=== PATIENT | female | born 1945 | race Caucasian/White ===

== ENCOUNTER 2016-09-16 19:21 | Emergency (ER) | payer OTHER, MEDICARE ==
[2016-09-16 19:26] VITALS: BP 148/81
--- NOTE | 2016-09-16 20:12 | RADIOLOGY REPORT ---
EXAMINATION: XR HIP, RIGHT CLINICAL INFORMATION: Fall, right hip pain. COMPARISON: No relevant prior studies are available for comparison. TECHNIQUE: An AP view of the pelvis as well as AP and frogleg lateral views of the right hip obtained. FINDINGS: No fracture or dislocation. No osseous erosion. Mild degenerative changes within the visualized lower lumbar spine. Small bilateral acetabular marginal osteophytes. No significant joint space narrowing. No abnormal soft tissue calcification. IMPRESSION: 1. No fracture or dislocation. 2. Mild bilateral hip osteoarthritis.
--- NOTE | 2016-09-16 20:26 | ED UPPER/LOWER EXTREMITY COMPL ---
History of Present Illness General Chief Complaint: Hip Injury Stated Complaint: L HIP PAIN Source: patient Exam Limitations: no limitations Vital Signs & Intake/Output Vital Signs & Intake/Output Vital Signs Date Time Temp Pulse Resp B/P Pulse O2 O2 Flow FiO2 Ox Delivery Rate 09/16 1925 97.8 105 20 148/81 98 Allergies Coded Allergies: Penicillins (RASH ALL OVER 09/16/16) meperidine (VOMITING 09/16/16) Reconcile Medications Amlodipine Besylate 10 MG TABLET 1 TAB PO DAILY BP (Reported) Calcium Carbonate/Vitamin D3 (Calcium 600 + Vit D 400 Tablet) (Unknown Strength) TABLET (Unknown Dose) PO DAILY SUPPLEMENT (Reported) Cholecalciferol (Vitamin D3) (Vitamin D) (Unknown Strength) CAPSULE (Unknown Dose) PO DAILY SUPPLEMENT (Reported) Loratadine (Claritin) (Unknown Strength) TABLET (Unknown Dose) PO PRN ALLERGIES (Reported) Multivit-Min/Iron/Folic/Lutein (Centrum Silver Women Tablet) 8 MG IRON-400 MCG- 300 MCG TABLET 1 TAB PO DAILY SUPPLEMENT (Reported) Naproxen 375 MG TABLET 1 TAB PO BID PRN PAIN with food Evart-3 Fatty Acids (Fish Oil) (Unknown Strength) CAPSULE (Unknown Dose) PO DAILY SUPPLEMENT (Reported) Pravastatin Sodium 40 MG TABLET 1 TAB PO QPM CHOLESTEROL (Reported) Triage Note: PER PT FELL AT 1400 ON DECK HIT RT HIP. BUTTOCKS AND BACK NO HEAD STRIKE NO LOC. Triage Nurses Notes Reviewed? yes Onset: Abrupt Duration: constant Timing: single episode today Severity: severe Severity Numbers: 7 Method of Injury: direct blow, fall HPI: Patient is a 71-year-old female who presents emergency and that this afternoon while sweeping snow off her back porch she slipped on ice resulted and landing on the right lateral aspect of her hip. Patient was able to get up with assistance and has been able to weight bear however this causes her much pain. No medications given prior to arrival. Denies any head strike and pain is localized to the right lateral hip region. at rest is in no pain. (BRET PIERSON,MARQUITA) Past History Travel History Traveled to [place] past 21 day No Medical History Any Pertinent Medical History? see below for history Neurological: NONE EENT: NONE Cardiovascular: hypertension, CHOL Respiratory: NONE Gastrointestinal: NONE Hepatic: NONE Renal: NONE Musculoskeletal: NONE Psychiatric: NONE Endocrine: NONE Pneumonia Vaccine: 10/04/14 Influenza Vaccine: 06/14/11 Surgical History Surgical History: non-contributory Psychosocial History What is your primary language [place] Tobacco Use: Never used Family History Hx Contributory? No (MARQUITA BENTLEY) Review of Systems Review of Systems Constitutional: Reports: no symptoms. EENTM: Reports: no symptoms. Respiratory: Reports: no symptoms. Cardiovascular: Reports: no symptoms. Gastrointestinal/Abdominal: Reports: no symptoms. Genitourinary: Reports: no symptoms. Musculoskeletal: Reports: see HPI, joint pain. Skin: Reports: no symptoms. Neurological/Psychological: Reports: no symptoms. Hematologic/Endocrine: Reports: no symptoms. Immunological: Reports: no symptoms. All Other Systems: Reviewed and Negative (MARQUITA BENTLEY) Physical Exam Physical Exam General Appearance: no apparent distress, alert, comfortable Neurologic/Tendon: normal sensation, normal motor functions, normal tendon functions, responds to pain, no evidence tendon injury Skin: intact, normal color, warm/dry Comments: Well-developed well-nourished person in no acute distress HEENT: Normal EENT exam, Neck: Supple, no lymphadenopathy, normal range of motion without pain or tenderness No central spinous tenderness Back: Nontender, no CVA tenderness. No central spinous tenderness Cardiovascular: Regular rate and rhythms no murmurs rubs or gallops, normal JVP Respiratory: Chest nontender. No respiratory distress.breath sounds clear to auscultation bilaterally Abdomen: Soft, nontender nondistended, no appreciable organomegaly. Normal bowel sounds. No ascites Extremity: No edema, no calf tenderness to palpation, normal and equal pulses. Right hip noted lateral hip ecchymosis and point tenderness patient able to perform straight leg raise with mild pain Right knee normal inspection nontender full active range of motion Right lower extremity dermatomes intact Neuro: Alert oriented x3, motor sensory normal, Skin: No appreciable rash on exposed skin, skin is warm and dry. Psych: Mood and affect is normal, memory and judgment is normal. (MARQUITA BENTLEY) Progress Differential Diagnosis: arterial insufficiency, compartment syndrome, contusion, dislocation, DVT, fracture, gout, septic arthritis, sprain, tendon injury Plan of Care: No osseous injury noted on x-ray findings. Patient was able to tolerate weightbearing activities however with pain. Patient was given a cane in the emergency room for fall prevention however I strongly advised patient to obtain the prescription given to her in the emergency room tomorrow for a walker for fall prevention. Patient and daughter felt comfortable to return active patient 's private residence and to follow-up with her orthopedic doctor and primary care doctor if symptoms do not improve. I had a long conversation with patient to always use the assisted devices for fall prevention and SHE will comply Diagnostic Imaging: Viewed by Me: Radiology Read. Radiology Impression: no fracture Comments: PATIENT: GERRY REYES PRESENT AGE: 71 PATIENT ACCOUNT NO: [id number] : 44 LOCATION: [facility] ORDERING PHYSICIAN: ROMY ROONEY DO (TBS) SERVICE DATE: 09/16/16 EXAM TYPE: RAD - XRY-HIP 2-3 VIEWS, RIGHT EXAMINATION: XR HIP, RIGHT CLINICAL INFORMATION: Fall, right hip pain. COMPARISON: No relevant prior studies are available for comparison. TECHNIQUE: An AP view of the pelvis as well as AP and frogleg lateral views of the right hip obtained. FINDINGS: No fracture or dislocation. No osseous erosion. Mild degenerative changes within the visualized lower lumbar spine. Small bilateral acetabular marginal osteophytes. No significant joint space narrowing. No abnormal soft tissue calcification. IMPRESSION: 1. No fracture or dislocation. 2. Mild bilateral hip osteoarthritis. (MARQUITA BENTLEY) Departure Departure Disposition: HOME OR SELF CARE Condition: Stable Clinical Impression Primary Impression: Contusion of right hip Referrals: ROGERIO MCDOWELL,BENNY Shukla (PCP/Family) Additional Instructions: As discussed begin icing the area directly 20 minutes every 2 hours. Begin using the cane tonight for fall prevention PROVIDED TO YOU in the emergency room tomorrow please obtained with the prescription provided to YOU IN the emergency room of a walker at a medical supply store for fall prevention at all times until YOU can walk without pain. If symptoms worsen return to emergency room. Begin the prescription of Naprosyn for pain and inflammation. This [facility] is [facility] at [facility]. If no better in 3 days follow-up with your primary care doctor and/or follow up with your orthopedic doctor. Departure Forms: Customer Survey General Discharge Information Prescriptions: Current Visit Scripts Naproxen 1 TAB PO BID PRN PAIN #20 TAB with food (MARQUITA BENTLEY) PA/RADIO RIGGER Co-Sign Statement Statement: ED Attending supervision documentation- [] I saw and evaluated the patient. I have also reviewed all the pertinent lab results and diagnostic results. I agree with the findings and the plan of care as documented in the PA's/RADIO RIGGER's documentation. [x] I have reviewed the ED Record and agree with the PA's/RADIO RIGGER's documentation. [] Additions or exceptions (if any) to the PAs/RADIO RIGGER's note and plan are summarized below: [] (GHAZAL MCDOWELL,ESTRADA Schuster)
[2016-09-16] MEDS ORDERED: AMLODIPINE BESY10 M1 PO (20:29)
[2016-09-16] MEDS ORDERED: PRAVASTATIN SOD40 M2 PO (20:29)
[2016-09-16] MEDS ORDERED: CALCIUM 600 +1 EA11 PO (20:30)
[2016-09-16] MEDS ORDERED: CENTRUM SILVER1 EACH PO (20:31)
[2016-09-16] MEDS ORDERED: FISH OIL500 M1 PO (20:32)
[2016-09-16] MEDS ORDERED: VITAMIN D2000 UNIT PO (20:33)
[2016-09-16] MEDS ORDERED: CLARITIN10 M1 PO (20:33)
[2016-09-16] MEDS ORDERED: NAPROXEN375 M2 PO (21:13)
== END 2016-09-16 21:30 ==
LOC: ERH 19:21
DX: S70.01XA Contusion of right hip, initial encounter (principal); W00.0XXA Fall on same level due to ice and snow, initial encounter
CPT/HCPCS: 73502-RT